=== PATIENT | female | born 1970 | race Caucasian/White ===

== ENCOUNTER → 2022-05-22 | Outpatient (CLI) | payer SELFPAY ==
[2022-05-22 10:19] LABS: Erythrocyte Sedimentation Rate 8 mm/hr (0-30)
[2022-05-22 10:49] LABS: Vitamin B12 1004 pg/mL (211-911); Vitamin D,25 Hydroxy 19.3 ng/mL
[2022-05-22 10:53] LABS: CRP < 2.90 mg/L (0.0-3.0); Free T3 2.2 pg/mL (2.18-3.98); LDH 155 U/L (84-246); T4 Free Direct 0.99 ng/dL (0.76-1.46); Thyroid Stim Hormone (TSH) 1.26 uIU/mL (0.358-3.74)
[2022-05-25 14:08] LABS: Anti-Centromere B Ab <0.2 AI (0.0-0.9); Anti-Chromatin <0.2 AI (0.0-0.9); Anti-Jo <0.2 AI (0.0-0.9); Anti-Scleroderma-70 AB <0.2 AI (0.0-0.9); RNP Ab 0.2 AI (0.0-0.9); SJOGREN'S Anti-SS-A test < 0.2 AI (0.0-0.9); SJOGREN'S Anti-SS-B test < 0.2 AI (0.0-0.9); Smith Ab <0.2 AI (0.0-0.9)
[2022-05-25 15:02] LABS: Anti-dsDNA Ab 2 IU/mL (0-9); Vitamin D 1,25-Dihydroxy 43.2 pg/mL (24.8-81.5)
[2022-05-25 15:08] LABS: Endomysial Antibody IgA Negative (Negative)
[2022-05-25 15:57] LABS: Immunoglobulin A 240 mg/dL (87-352); t-Transglutaminase IgA <2 U/mL (0-3)
[2022-05-30 04:07] LABS: Cytoplasmic Ab (C-ANCA) <1:20 titer (Neg:<1:20); Immunoglobulin A 249 mg/dL (87-352); Immunoglobulin E 4 IU/mL (6-495); Immunoglobulin G 1110 mg/dL (586-1602)
[2022-05-30 07:38] LABS: Immunoglobulin M 163 mg/dL (26-217); Perinuclear Ab (P-ANCA) <1:20 titer (Neg:<1:20)
== END | disposition home or self-care (01) ==
PROVIDERS: PCP Nurse Practitioner Family; Referring Provider Internal Medicine Gastroenterology; Visit Provider Internal Medicine Gastroenterology
DX: K55.1 Chronic vascular disorders of intestine (principal)
CPT/HCPCS: 36415; 82306; 82607; 82652; 82784; 82785; 83516; 83615; 84439; 84443; 84481; 85652; 86140; 86225; 86235; 86255; 86256

== ENCOUNTER 2022-06-08 07:07 | Day surgery (SDC) | payer SELFPAY ==
[2022-06-08] VITALS (7 sets, daily range): BP systolic 99–120; BP diastolic 59–77; PULSE 72–88; RESP 18; TEMP 36.3–37.1; O2SAT 99–100; BMI 17.6
[2022-06-08] MEDS: Lactated Ringers 1,000 ML 15 ML IV (07:15)
[2022-06-08 07:35] LABS: Internal QC Validated? YES +Cl - CLEAR BKGD; Pregnancy, Urine Negative Negative
--- NOTE | 2022-06-08 08:03 | PCM.HP.BLA ---
History and Physical Date of Admission: 06/08/22 11 F who presents to the office today for Initial consult. Teetee established with this clinic 05.20.22 with referral from PCP for suspected SMA syndrome. For several years she was having difficulty with decreased appetite and postprandial nausea and mid/right abdominal pain. CT abd/pel performed 02.20.22 with possible SMA noted. BM most days without difficulty. Symptoms continues to be present at about the same. Current weight 101lbs, typically weighs approximately 115lbs. Typically avoids food that require chewing as they seem to contribute to an increase of symptoms. However, she does do well with soft foods and liquids. Urology seen because she has just one kidney who feels she is doing well. Vascular seen who diagnosed with SMA who is recommending EGD. Additional plans include feeding tube and surgery. Her family would like her to pursue TPN. CT abd/pel 02.20.22 PH noting reduced aortic-SMA angle without appreciable stenosis of left renal vein, compression ratio 1. ROS Const Constitutional: No anorexia, fatigue, fever(s), weight change or sleep problems Eyes Eyes: No change in vision ENT ENT: No abnormal hearing, difficulty swallowing, mouth lesions, tongue swelling or throat swelling Resp Respiratory: No cough or shortness of breath Cardio Cardiology: No chest pain at rest, chest pain with exertion, shortness of breath or dyspnea on exertion Gastro GI: No difficulty swallowing Genitourinary-Female: No difficulty urinating or burning urination Musc Musculoskeletal: No joint pain, joint swelling, muscle weakness or decreased muscle mass Skin Skin: No hair loss in leg, yellowing of the eye, itchy eyes, rash, skin ulcer or skin swelling Neuro Neurology: No abnormal hearing, abnormal movements, confusion, unsteady gait/balance or memory loss Psych Psychiatric: No anxiety, No confusion and No memory loss Endo Endocrine: No fatigue or weight change Aller/Imm Allergy/Immunologic: No itchy eyes, throat swelling or tongue swelling Azam/Lymp Hematologic/Lymphatic: No easy bleeding, easy bruising or enlarged lymph nodes Exam Const General: cooperative and comfortable Nutritional Appearance: average body habitus and well nourished [facility] Head: normal to inspection Ears: hearing grossly normal bilaterally Nose: external nose normal Face and sinus: normal facial exam Mouth: oral mucosae normal Throat: posterior oropharynx normal Eyes General: appearance normal, both eyes and all related structures Neck Neck: normal visual inspection Chest Chest palpation & inspection: normal inspection of the chest and normal palpation of entire chest wall Resp Effort & Inspection: normal respiratory effort Auscultation: Bilateral: Clear to Auscultation Cardio Palpation: normal PMI Rate: regular rate Rhythm: regular rhythm GI Inspection: normal to inspection Auscultation: normal bowel sounds Percussion: normal to percussion Palpation: no hepatosplenomegaly Skin General: no rashes or lesions noted Neuro General: patient alert Extrem General: normal to inspection Psych Affect: normal affect Quality Reporting Tobacco Screening ([facility] 138) Smoking Status: Never smoker Assessment and Plan Assessment and Plan (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 Patient at this time does not want to undergo any surgical intervention including feeding tube placement.? She does have a BMI of 16.5 at this time.? She is 5 5 and weighs 101 pounds.? By calculation she needs to be 130 pounds to have a BMI of 23.? Had a BMI of 21 that would put her at 120 pounds at her current height.? Recommend an upper endoscopy to evaluate her upper GI tract and to see how compressed the duodenum is secondary to compression of the superior mesenteric artery.? She will also undergo biochemical testing for autoimmune disease and diseases of the small bowel.? She may need repeat imaging.? We will refer her to brazing furnace feeder to help ensure a increased caloric intake to have her have the best outcome. ? ? ? Orders: Orders CRP Today K55.1 - Chronic vascular disorders of intestine ? LDH Today K55.1 - Chronic vascular disorders of intestine ? Erythrocyte Sed Rate Today K55.1 - Chronic vascular disorders of intestine ? ANCA Today K55.1 - Chronic vascular disorders of intestine ? Celiac Disease Profile Today K55.1 - Chronic vascular disorders of intestine ? Immunoglobulin A Today K55.1 - Chronic vascular disorders of intestine ? Immunoglobulin E Today K55.1 - Chronic vascular disorders of intestine ? Immunoglobulin G Today K55.1 - Chronic vascular disorders of intestine ? Immunoglobulin M Today K55.1 - Chronic vascular disorders of intestine ? Vitamin D,25 Hydroxy Today K55.1 - Chronic vascular disorders of intestine ? Vitamin B12 Today K55.1 - Chronic vascular disorders of intestine ? Free T3 Today K55.1 - Chronic vascular disorders of intestine ? T4 Free Direct Today K55.1 - Chronic vascular disorders of intestine ? Thyroid Stim Hormone (TSH) Today K55.1 - Chronic vascular disorders of intestine ? DIANE Comprehensive Panel Today K55.1 - Chronic vascular disorders of intestine ? Vitamin D 1,25-Dihydroxy Today K55.1 - Chronic vascular disorders of intestine ? Referrals Nutrition Referral ? K55.1 - Chronic vascular disorders of intestine ? I have examined the patient and the H&P has been reviewed. There are no clinical changes since date of exam.
--- NOTE | 2022-06-08 08:15 | IMM_PTH ---
PATIENT: SABA GIBBONS LOC: EN U#:[id number] AGE/SX: 51/F ROOM: RE06/08/[address]: Dr. Santosh Streeter DO : 1970 BED: DIS: 06/08/2022 SPEC #: [id number] RECD: 06/08/22 13:31 STATUS: SANCHEZ REMitul #: [id number] SHIV: 06/08/22 08:[address]: Santosh Streeter DEPT: IMMUNOHISTOCHEMISTRY RECD BY: Leticia Bates ENTERED: 06/08/22 13:32 SP TYPE: IMMUNO OTHR DR: Emili Lozano, DRYING OVEN TENDER-C Tissues: C - Stomach, NOS Procedures: H Pylori (initial) PHYSICIAN & INSTITUTION [place] [address] SPECIMEN INFORMATION: Tissue Source: C ? Gastric ulcer incisor region Clinical Info: Superior mesenteric artery syndrome Specimen Number: [id number] CPT code: 84532 METHODOLOGY: Deparaffinized sections of prefer/formalin-fixed tissue or PAP/DQ stained slides are incubated with monoclonal/polyclonal antibodies/oligonucleotide probes. Localization is made via biotin free immunoperoxidase method. Appropriate controls are performed and reacted as expected. Results on target cell population are indicated in the following table: RESULTS: ANTIBODY / CLONE RESULT Block C H Pylori (polyclonal) positive These tests were developed and their performance characteristics determined by [facility]. They may not have been cleared or approved by the U.S. Food and Drug Administration. The FDA has determined that such clearance or approval is not necessary. The above immunohistochemical/dualISH markers are ordered and reviewed by the Pathologist. INTERPRETATION: C. Gastric ulcer incisor region: Positive for numerous Helicobacter pylori organisms. ANDERSON:markus 06/09/2022
--- NOTE | 2022-06-08 08:15 | EGD_PTH ---
PATIENT: SABA GIBBONS LOC: EN U#:[id number] AGE/SX: 51/F ROOM: RE06/08/[address]: Dr. Santosh Streeter DO : 1970 BED: DIS: 06/08/2022 SPEC #: [id number] RECD: 06/08/22 11:29 STATUS: SANCHEZ RAJENDRA #: [id number] SHIV: 06/08/22 08:[address]: Santosh Streeter DEPT: SURGICAL PATHOLOGY RECD BY: Winifred Rg ENTERED: 06/08/22 12:27 SP TYPE: EGD BIOPSY BALJINDER DR: Emili Lozano, CORN GROWER-C Tissues: A - Gastric mucous membrane B - Gastric mucous membrane C - Gastric mucous membrane Procedures: Surgery Specimen Level IV HEADER OPERATION: EGD with biopsy (MAC) PRE-OP DIAGNOSIS: Superior mesenteric artery syndrome TISSUE SUBMITTED: A ? Gastric cardia, B ? Greater curvature, C ? Gastric ulcer incisor region MICROSCOPIC DIAGNOSIS A. Gastric cardia, biopsy: Moderate chronic active gastritis. B. Greater curvature, biopsy: Moderate chronic active gastritis. C. Gastric ulcer incisor region, biopsy: Focal ulceration and associated acute inflammation and moderate chronic active gastritis. See comment. SJ:rg 06/09/2022 COMMENT C. The results of immunohistochemistry for Helicobacter pylori will be reported separately ([id number]). MICROSCOPIC DESCRIPTION Slides are reviewed. GROSS DESCRIPTION A - Received in fixative is one container labeled with the patient's name and designated gastric cardia. The specimen consists of multiple irregular fragments of light mittla soft tissue that in aggregate measure 1.2 x 0.3 x 0.1 cm. The specimen is totally submitted in one cassette. B - Received in fixative is one container labeled with the patient's name and designated greater curvature. The specimen consists of two irregular fragments of light mittal soft tissue that in aggregate measure 0.5 x 0.2 x 0.1 cm. The specimen is totally submitted in one cassette. C - Received in fixative is one container labeled with the patient's name and designated gastric ulcer incisor region. The specimen consists of multiple irregular fragments of light mittal soft tissue that in aggregate measure 1 x 0.5 x 0.1 cm. The specimen is totally submitted in one cassette. / ANDERSON:markus 06/08/2022 TC:2 CPT: 89333 x3
--- NOTE | 2022-06-08 08:31 | OP.EGD_ITS ---
Patient Name: Teetee Mack Procedure Date: 06/08/2022 8:04 AM Date of : 1970 Age: 51 Procedure: Upper GI endoscopy Indications: Failure to respond to medical treatment Providers: Santosh Streeter DO Medicines: Propofol per Anesthesia Patient Profile: This is a 51 year old female. Refer to note in patient chart for documentation of history and physical. Patient has symptoms of acute epigastric abdominal pain and acute dyspepsia. Complications: No immediate complications. Procedure: Pre-Anesthesia Assessment: - Prior to the procedure, a History and Physical was performed, and patient medications and allergies were reviewed. The patient is competent. The risks and benefits of the procedure and the sedation options and risks were discussed with the patient. All questions were answered and informed consent was obtained. Patient identification and proposed procedure were verified by the physician in the pre-procedure area. Mental Status Examination: alert and oriented. Airway Examination: normal oropharyngeal airway and neck mobility. Respiratory Examination: clear to auscultation. CV Examination: normal. Prophylactic Antibiotics: The patient does not require prophylactic antibiotics. Prior Anticoagulants: The patient has taken no previous anticoagulant or antiplatelet agents. ASA Grade Assessment: II - A patient with mild systemic disease. After reviewing the risks and benefits, the patient was deemed in satisfactory condition to undergo the procedure. The anesthesia plan was to use monitored anesthesia care (MAC). Immediately prior to administration of medications, the patient was re-assessed for adequacy to receive sedatives. The heart rate, respiratory rate, oxygen saturations, blood pressure, adequacy of pulmonary ventilation, and response to care were monitored throughout the procedure. The physical status of the patient was re-assessed after the procedure. After obtaining informed consent, the endoscope was passed under direct vision. Throughout the procedure, the patient's blood pressure, pulse, and oxygen saturations were monitored continuously. The gastroscope was introduced through the mouth, and advanced to the second part of duodenum. The upper GI endoscopy was accomplished without difficulty. The patient tolerated the procedure well. Scope In: 8:13:57 AM Scope Out: 8:21:36 AM Total Procedure Duration Time 0 hours 7 minutes 39 seconds Findings: No gross lesions were noted in the entire esophagus. A small hiatal hernia was present. Scattered moderate inflammation characterized by congestion (edema), erythema and friability was found in the cardia and on the greater curvature of the stomach. Biopsies were taken with a cold forceps for histology. Verification of patient identification for the specimen was done. Estimated blood loss was minimal. One non-bleeding cratered gastric ulcer was found at the incisura. The lesion was 13 mm in largest dimension. Biopsies were taken with a cold forceps for histology. Verification of patient identification for the specimen was done. Estimated blood loss was minimal. No gross lesions were noted in the first portion of the duodenum. Impression: - No gross lesions in esophagus. - Small hiatal hernia. - Gastritis. Biopsied. - Non-bleeding gastric ulcer. Biopsied. - No gross lesions in the first portion of the duodenum. Recommendation: - Discharge patient to home. - No aspirin, ibuprofen, naproxen, or other non-steroidal anti-inflammatory drugs for 12 weeks. - Use Protonix (pantoprazole) 40 mg PO BID for 8 weeks. - Use sucralfate tablets 1 gram PO QID for 2 months. Procedure Code(s): --- Professional --- 53020, Esophagogastroduodenoscopy, flexible, transoral; with biopsy, single or multiple CPT copyright 2017 [employer]. All rights reserved. The codes documented in this report are preliminary and upon food and beverage checker review may be revised to meet current compliance requirements. Santosh Streeter DO 06/08/2022 8:31:07 AM This report has been signed electronically. Number of Addenda: 0 Note Initiated On: 06/08/2022 8:04 AM
--- NOTE | 2022-06-08 08:31 | OP.CCLET_ITS ---
06/08/2022 Luis Sky Re : Upper GI endoscopy procedure for Teetee Mack Dear Blake This procedure was performed on Wednesday, June 08, 2022. My impressions and recommendations are as follows: Impressions : - No gross lesions in esophagus. - Small hiatal hernia. - Gastritis. Biopsied. - Non-bleeding gastric ulcer. Biopsied. - No gross lesions in the first portion of the duodenum. Recommendations : - Discharge patient to home. - No aspirin, ibuprofen, naproxen, or other non-steroidal anti-inflammatory drugs for 12 weeks. - Use Protonix (pantoprazole) 40 mg PO BID for 8 weeks. - Use sucralfate tablets 1 gram PO QID for 2 months. My findings are described in the full procedure note, which is enclosed. If I can be of further assistance, please feel free to contact me at . Sincerely, Santosh Streeter, 06/08/2022 8:31:07 AM This report has been signed electronically.
== END 2022-06-08 09:19 | disposition home or self-care (01) ==
LOC: EN 07:13 → AC 07:16
PROVIDERS: Anesthesiology; PCP Nurse Practitioner Family; Referring Provider Nurse Practitioner Family; Visit Provider Internal Medicine Gastroenterology
PROC: 0DJ08ZZ Inspection of Upper Intestinal Tract, Via Natural or Artificial Opening Endoscopic (ICD-10-PCS; CPT 43235; principal; 2022-06-08 08:10)
DX: K25.9 Gastric ulcer, unspecified as acute or chronic, without hemorrhage or perforation (principal); K29.50 Unspecified chronic gastritis without bleeding; K44.9 Diaphragmatic hernia without obstruction or gangrene; B96.81 Helicobacter pylori [H. pylori] as the cause of diseases classified elsewhere; Z90.5 Acquired absence of kidney
CPT/HCPCS: 43239; 81025; 88305; 88342; J7120; J2405

== ENCOUNTER → 2022-08-24 | Outpatient (CLI) | payer SELFPAY ==
[2022-08-28 18:53] LABS: H. PYLORI STOOL AG Negative (Negative)
== END | disposition home or self-care (01) ==
PROVIDERS: PCP Nurse Practitioner Family; Referring Provider Internal Medicine Gastroenterology; Visit Provider Internal Medicine Gastroenterology
DX: A04.8 Other specified bacterial intestinal infections (principal); K55.1 Chronic vascular disorders of intestine
CPT/HCPCS: 87338

== ENCOUNTER → 2023-03-19 | Outpatient (CLI) | payer SELFPAY ==
[2023-03-21 08:08] LABS: H. PYLORI STOOL AG Negative (Negative)
== END | disposition home or self-care (01) ==
LOC: LABSPEC 08:59
PROVIDERS: PCP Nurse Practitioner Family; Referring Provider Internal Medicine Gastroenterology; Visit Provider Internal Medicine Gastroenterology
DX: R10.9 Unspecified abdominal pain (principal)
CPT/HCPCS: 87338

== ENCOUNTER → 2025-05-23 | Outpatient (CLI) | payer SELFPAY ==
--- OUTSIDE RECORDS SUMMARY | 2025-05-23 15:21 | XMS RPT_ITS | CCD ---
Author Organization [facility] Care Team Providers Care Payroll Professional Name Role Phone Friend, Dr. Frost Attending Provider Friend, Dr. Frost Other Provider Blake AUTOMATIC PACKER OPERATOR, AUTOMATIC PACKER OPERATOR-C Emili Primary Care Provider [phone] Blake AUTOMATIC PACKER OPERATOR, AUTOMATIC PACKER OPERATOR-C Emili Referring Provider [phone] Blake AUTOMATIC PACKER OPERATOR, Emili Primary Care Unavailable FriendSantosh Attending Unavailable Blake AUTOMATIC PACKER OPERATOR, Emili Referring Unavailable FriendSantosh Attending Unavailable Blake AUTOMATIC PACKER OPERATOR, Emili Referring Unavailable Blake AUTOMATIC PACKER OPERATOR, Emili Primary Care Unavailable UNGERERVICKMERCEDES AUTOMATIC PACKER OPERATOR Consulting Unavailable UNGERERMERCEDES AUTOMATIC PACKER OPERATOR Attending Unavailable UNGERERMERCEDES AUTOMATIC PACKER OPERATOR Admitting Unavailable UNGERER, MERCEDES AUTOMATIC PACKER OPERATOR Primary Care Unavailable PROVIDER, UNKNOWN Consulting Unavailable UNGERER, MERCEDES AUTOMATIC PACKER OPERATOR Primary Care Unavailable UNGERER, MERCEDES AUTOMATIC PACKER OPERATOR Consulting Unavailable UNGERER, MERCEDES AUTOMATIC PACKER OPERATOR Attending Unavailable UNGERER, MERCEDES AUTOMATIC PACKER OPERATOR Admitting Unavailable PROVIDER, UNKNOWN Consulting Unavailable Medications Current Medications Medication Drug Class(es) Dates Sig (Normalized) Sig (Original) amoxicillin 500 mg oral tablet (2 sources) Penicillin-class Antibacterial Start: 06-09-2022 take 500 mg by mouth every twelve hours Amoxicillin Active 500 MG PO Q12H June 09, 2022 1:00am clarithromycin 500 mg oral tablet (2 sources) Macrolide Antimicrobial Start: 06-09-2022 take 500 mg by mouth every twelve hours Clarithromycin Active 500 MG PO Q12H June 09, 2022 1:00am pantoprazole 40 mg delayed release oral tablet (3 sources) Proton Pump Inhibitor Start: 06-08-2022 take 40 mg by mouth once daily Pantoprazole Active 40 MG PO DAILY 60 60 June 08, 2022 1:00am saccharomyces boulardii 250 mg oral capsule (1 source) Start: 03-13-2022 take 1 capsule by mouth twice daily Saccharomyces Boulardii (Daily Probiotic (S. Boulardii)) 250 mg capsule Active 250 MG PO TWICE A DAY March 12, 2022 11:00pm Completed/Discontinued Medications Medication Drug Class(es) Dates Sig (Normalized) Sig (Original) bismuth subsalicylate 262 mg oral tablet (2 sources) Bismuth Start: 06-09-2022 End: 06-23-2022 take 1 tablet by mouth every twenty-four hours Bismuth Subsalicylate (Bismuth) 262 mg tablet,chewable Discontinued 2 TABLET PO EVERY 6 HOURS 112 14 June 09, 2022 1:00am June 23, 2022 1:03am do not exceed 16 tabs per 24 hrs sucralfate 1000 mg oral tablet (3 sources) Aluminum Complex Start: 06-08-2022 End: 08-07-2022 take 1 g by mouth every six hours Sucralfate Discontinued 1 GM PO EVERY 6 HOURS 240 60 June 08, 2022 1:00am August 07, 2022 1:04am Problems Active Problems Problem Classification Problem Date Documented Da te Episodic/Chronic Abdominal pain (1 source) Abdominal pain; Translations: [Unspecified abdominal pain] 02-12-2023 Episodic Intestinal infection (3 sources) Infection caused by Helicobacter pylori; Translations: [Other specified bacterial intestinal infections] 08-14-2022 Episodic Peripheral and visceral atherosclerosis (8 sources) Superior mesenteric artery syndrome; 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] Chronic Residual codes; unclassified (1 source) Acquired absence of kidney; Translations: [Acquired absence of kidney] Onset: 09-27-2024 Episodic Past or Other Problems Problem Classification Problem Date Documented Da te Episodic/Chronic Heart valve disorders (3 sources) Cardiac murmur, unspecified; Translations: [Cardiac murmur, unspecified] Onset: 10-04-2023 Episodic Results Test Name Value Interpretation Reference Range Facility Gastroenterology Visit Repor ton 05-25-2024 Gastroenterology Visit Report [facility] [address] [place] [address] OFFICE VISIT Date of Service: 05/25/24 MR#: [id number] Acct: [id number] Name: SABA GIBBONS Rep #: [id number] : 1970 Provider: Santosh Streeter DO Age/Sex: 53/F [place] [facility] [place] Status: Signed Intake Vital Signs 06/08/22 07:37 Height 5 ft 5 in Intake Visit Reasons: 1 Y FU Allergies No Known Allergies Allergy (Verified 06/08/22 07:36) Medications ???Medication ???Instructions ???Recorded ???Confirmed ???Type pantoprazole 40 mg tablet,delayed 40 mg PO DAILY 3 months #90 tabs 05/28/23 05/25/24 Rx release PFSH Medical History (Updated 02/12/23 @ 15:21 by Betsy Trujillo) Wears contact lenses Wears dentures Non-smoker Decreased appetite Nausea Abdominal pain Surgical History H/O dilation and curettage History of nephrectomy, right Family History Father Asthma Hypertension Grandfather Asthma Grandmother Diabetes Sister Kidney disease Hypertension Social History Smoking Status: Never smoker alcohol intake: never HPI HPI Details: SABA GIBBONS, is a 53 F who presents to the office today for follow up. Prior workup: ? CT abd/pel 02.20.22 PH noting reduced aortic-SMA angle without appreciable stenosis of left renal vein, compression ratio 1. 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 For several years she was having difficulty with decreased appetite and postprandial nausea and mid/right abdominal pain. CT abd/pel performed 02.20.22 with possible SMA noted. BM most days without difficulty. Symptoms continues to be present at about the same. Current weight 101lbs, typically weighs approximately 115lbs. Typically avoids food that require chewing as they seem to contribute to an increase of symptoms. However, she does do well with soft foods and liquids. Urology seen because she has just one kidney who feels she is doing well. Vascular seen who diagnosed with SMA who is recommending EGD. Additional plans include feeding tube and surgery. Her family would like her to pursue TPN. ? Biochemical CRP, LDH, ESR, ANCA, celiac, IgGAM, Vit D25, T3, T4, TSH, DIANE comp, Vit D1,25 without pertinent abnormality. Vit B12 H1004, IgE L4 EGD 06.08.22 noting small hiatal hernia; gastritis; non-bleeding gastric ulcer, gastritis. H.Pylori + Protonix 40mg taper and sucralfate Contact 06.09.22 H.Pylori treatment started flagyl, bismuth, clarithromycin and flagyl. Referred to nutrition services who were unable to reach Saba to schedule. OV 08.14.22 who feels she is doing better overall and has been introducing new foods. SMA, daily calorie goal 1500 with BMI 22. H.Pylori infection, check stool ? Stool H.Pylori negative. Contact 02.12.23 reporting she is not feeling well, similar to H.Pylori previously. ? Stool 03.19.23 H.Pylori negative. Contact 04.01.23 she feels her GI upset may be r/t stress from moving; not taking PPI regularly. Start PPI regularly and simethicone BID OV 05.28.23 intermittently will have indigestion which makes her worried. Continues with PPI QD and will have missed days (on missed days she feels worse) and simethicone PRN. OV 05.25.24 pt reports that she is feeling well overall and denies GI symptoms of concern at this time. Pt reports that she continues with her Pantoprazole when she is symptomatic and it is effective. ROS Const Constitutional: No fatigue, fever(s) or weight change ENT ENT: No difficulty swallowing Gastro GI: Positive for bloating, heartburn and excessive flatus; No abdominal pain, belching, change in bowel habits, change in stool character, coffee ground emesis, constipation, cramping, diarrhea, difficulty swallowing, feeling full early, incontinent of stools, Vomiting blood/hematemesis, Blood in stool, loose stools, Black,tarry stools, nausea/dyspepsia, pain with swallowing, vomiting or other Musc Musculoskeletal: Positive for back pain; No joint pain Skin Skin: No yellowing of the eye or itchy eyes Psych Psychiatric: No anxiety and No depression Endo Endocrine: No fatigue or weight change Aller/Imm Allergy/Immunologic: No itchy eyes Azam/Lymp Hematologic/Lymphatic : No easy bleeding or easy bruising Exam Const General: cooperative and comfortable Nutritional Appearance: average body habitus and well nourished HENVT Head: normal to inspection Ears: hearing grossly normal bilaterally Nose: external nose emily (more content not included)... Normal [facility] CV ECHO [facility] CV ECHO COMPLETE [place] [address] Patient: SABA GIBBONS Phone#: : 1970 Age: 52 Gender: F Pt. Type: Out Account: [id number] Location: Ordering: MERCEDES LOCKWOOD Exam Date: 10/04/2023/9:21 Family Phys: Charge Code: [id number] Physician: [place] Order #: [id number] Dose#: PROCEDURE: ECHOCARDIOGRAM WITH DOPPLER AND COLOR FLOW HISTORY: rt nephrectomy INDICATIONS: HEART MURMUR COMPARISON: None. TECHNIQUE: A 2-D ultrasound, color spectral Doppler and M-mode evaluation of the heart and great vessels. PATIENT MEASUREMENTS: Height (in.): 65 BSA: 1.60 Weight (lbs.): 122 BP: 150/76 Hosiery Bagger: CHINTAN M MODE 2D MEASUREMENTS AND CALCULATIONS: LVIDd: 4.26 cm LVIDs: 2.59 cm IVSd: 0.75 cm LVPWd: 0.83 cm LVOT diam: 1.9 cm FS: 39.24 % Ao Root diam: 2.58 cm LA diam: 3.3 cm LA Volume Index: 16.2 mL/m2 LA A4 Area: 11.18 cm2 RA A4 Area: 10.8 cm2 RVDd: 2.61 cm TAPSE: 25 mm DOPPLER MEASUREMENTS AND CALCULATIONS MITRAL MV E MAX prudencio: 0.98 m/s MV A MAX prudencio: 0.59 m/s MV E-A ratio: 1.65 Lat Peak E' Prudencio 14 cm/sec Septal Peak E' PRUDENCIO 14 cm/sec E/E' lateral 6.75 E/E' medial 7 Continued Report - Page 2 of 3 Patient: SABA GIBBONS Phone#: : 1970 Age: 52 Gender: F Pt. Type: Out Account: [id number] Location: Ordering: MERCEDES LOCKWOOD Exam Date: 10/04/2023/9:21 Family Phys: Charge Code: [id number] Physician: [place] Order #: [id number] Dose#: AORTIC Ao V2 max: 1.15 m/s Ao max P.29 mm[Hg] LV V1 Max 0.97 m/s LV V1 Max PG 3.74 mm[Hg] PULMONIC PA V2 Max 1.09 m/s PA Max PG 4.72 mm[Hg] TRICUSPID TR Max Prudencio TR max PG RVSP 2D/M-MODE AND COLOR FLOW LEFT VENTRICLE: Left ventricle is normal in size and thickness. Systolic ejection fraction is 55-60%. There are no regional wall motion abnormality seen. Diastolic function is normal WALL MOTION: 1 - Basal anterior: Normal. 7 - Mid anterior: Normal. 13 - Apical anterior: Normal. 2 - Basal anteroseptal: Normal. 8 - Mid anteroseptal: Normal. 14 - Apical septal: Normal. 3 - Basal inferoseptal: Normal. 9 - Mid inferoseptal: Normal. 15 - Apical inferior: Normal. 4 - Basal inferior: Normal. 10-Mid inferior: Normal. 16 - Apical lateral: Normal. 5 - Basal inferolateral: Normal. 11-Mid inferolateral: Normal. 6 - Basal anterolateral: Normal. 12-Mid anterolateral: Normal. RIGHT VENTRICLE: Right ventricle is normal in size and systolic function LEFT ATRIUM: Left atrium is normal size RIGHT ATRIUM: Right atrium is normal size. ATRIAL SEPTUM: There is no large interatrial shunt seen. PFO was not assessed. MITRAL VALVE: Mitral valve appears normal structure. There is trivial regurgitation and no stenosis seen. TRICUSPID VALVE: Tricuspid valve appears normal structure. There is no regurgitation or stenosis seen AORTIC VALVE: Aortic valve is inadequately visualized. There is no regurgitation or stenosis seen PULMONIC VALVE: Pulmonic valve is inadequately visualized. Doppler shows no regurgitation or stenosis seen AORTIC ROOT: Aortic root is normal size. AORTIC ARCH: Inadequately visualized DESC THORACIC AORTA: Inadequately visualized IVC/SVC: IVC is dilated with more than 50% collapse of inspiration. Estimated right atrial pressure is 8 mm Hg PULMONARY VEINS: Normal pulmonic vein flow. PERICARDIUM: There is no pericardial effusion seen. CONCLUSION: Continued Report - Page 3 of 3 Patient: SABA GIBBONS. Phone#: : 1970 Age: 52 Gender: F Pt. Type: Out Account: [id number] Location: Ordering: MERCEDES LOCKWOOD Exam Date: 10/04/2023/9:21 Family Phys: Charge Code: [id number] Physician: [place] Order #: [id number] Dose#: 1. Left ventricle is normal in size and thickness. Systolic ejection fraction is 55-60% with normal wall motion 2. There are no significant valvular dysfunction seen. 3. Right ventricle is normal size systolic function 4. TR velocity is inadequate to calculate for right ventricular systolic pressure Dictated by: RICARDO MORGAN MD on 10/04/2023 at 12:10 Approved by: RICARDO MORGAN MD on 10/04/2023 at 12:21 Normal [facility] Gastroenterology Visit Repor ton 05-28-2023 Gastroenterology Visit Report [facility] Gastroenterology [address] [place] [address] OFFICE VISIT Date of Service: 05/28/23 MR#: [id number] Acct: [id number] Name: SABA GIBBONS Rep #: [id number] : 1970 Provider: Santosh Streeter DO Age/Sex: 52/F [place] [facility] [place]: Signed Intake Vital Signs 06/08/22 07:37 Height 5 ft 5 in Intake Visit Reasons: 5 MO FU Allergies No Known Allergies Allergy (Verified 06/08/22 07:36) PFSH Medical History (Updated 02/12/23 @ 15:21 by Betsy Trujillo) Abdominal pain Decreased appetite Nausea Non-smoker Wears contact lenses Wears dentures Surgical History H/O dilation and curettage History of nephrectomy, right Family History Father Asthma Hypertension Grandfather Asthma Grandmother Diabetes Sister Kidney disease Hypertension Social History Smoking Status: Never smoker alcohol intake: never HPI HPI Details: SABA GIBBONS, is a 52 F who presents to the office today for Prior workup: ? CT abd/pel 02.20.22 PH noting reduced aortic-SMA angle without appreciable stenosis of left renal vein, compression ratio 1. 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 For several years she was having difficulty with decreased appetite and postprandial nausea and mid/right abdominal pain. CT abd/pel performed 02.20.22 with possible SMA noted. BM most days without difficulty. Symptoms continues to be present at about the same. Current weight 101lbs, typically weighs approximately 115lbs. Typically avoids food that require chewing as they seem to contribute to an increase of symptoms. However, she does do well with soft foods and liquids. Urology seen because she has just one kidney who feels she is doing well. Vascular seen who diagnosed with SMA who is recommending EGD. Additional plans include feeding tube and surgery. Her family would like her to pursue TPN. ? Biochemical CRP, LDH, ESR, ANCA, celiac, IgGAM, Vit D25, T3, T4, TSH, DIANE comp, Vit D1,25 without pertinent abnormality. Vit B12 H1004, IgE L4 EGD 06.08.22 noting small hiatal hernia; gastritis; non-bleeding gastric ulcer, gastritis. H.Pylori + Protonix 40mg taper and sucralfate Contact 06.09.22 H.Pylori treatment started flagyl, bismuth, clarithromycin and flagyl. Referred to nutrition services who were unable to reach Saba to schedule. OV 08.14.22 who feels she is doing better overall and has been introducing new foods. SMA, daily calorie goal 1500 with BMI 22. H.Pylori infection, check stool ? Stool H.Pylori negative. Contact 02.12.23 reporting she is not feeling well, similar to H.Pylori previously. ? Stool 03.19.23 H.Pylori negative. Contact 04.01.23 she feels her GI upset may be r/t stress from moving; not taking PPI regularly. Start PPI regularly and simethicone BID OV 05.28.23 intermittently will have indigestion which makes her worried. Continues with PPI QD and will have missed days (on missed days she feels worse) and simethicone PRN. ROS Const Constitutional: No anorexia, fatigue, fever(s), weight change or sleep problems Eyes Eyes: No change in vision ENT ENT: No abnormal hearing, difficulty swallowing, mouth lesions, tongue swelling or throat swelling Resp Respiratory: No cough or shortness of breath Cardio Cardiology: No chest pain at rest, chest pain with exertion, shortness of breath or dyspnea on exertion Gastro GI: No difficulty swallowing Genitourinary-Female: No difficulty urinating or burning urination Musc Musculoskeletal: No joint pain, joint swelling, muscle weakness or decreased muscle mass Skin Skin: No hair loss in leg, yellowing of the eye, itchy eyes, rash, skin ulcer or skin swelling Neuro Neurology: No abnormal hearing, abnormal movements, confusion, unsteady gait/balance or memory loss Psych Psychiatric: No anxiety, No confusion and No memory loss Endo Endocrine: No fatigue or weight change Aller/Imm Allergy/Immunologic: No itchy eyes, throat swelling or tongue swelling Azam/Lymp Hematologic/Lymphatic : No easy bleeding, easy bruising or enlarged lymph nodes Exam Const General: cooperative and comfortable Nutritional Appearance: average body habitus and well nourished HENMT Head: normal to inspection Ears: hearing grossly normal bilaterally Nose: external nose normal Face and sinus: normal facial exam Mouth: oral mucosae normal Throat: posterior oropharynx normal Eyes General: appearance normal, both e (more content not included)... Normal [facility] Stool Helicobacter pylori an tigen detection by immunoassayOrdered By: Santosh Streeter on 03-19-2023 H. pylori Ag IA Ql (Stl) Negative Negative [facility] Comment on above: Performed at: [facility] [id number] Director: George Sanchez MD, Phone: [phone] Stool Helicobacter pylori an tigen detection by immunoassayOrdered By: Santosh Streeter on 08-24-2022 H. pylori Ag IA Ql (Stl) Negative Negative [facility] Comment on above: Performed at: [facility] [id number] Director: George Sanchez MD, Phone: [phone] Laboratory - Chemistry and C hemistry - challengeOrdered By: Dr. Wolfe on 06-08-2022 HCG ( test) Ql (U) Negative [facility] Comment on above: Very dilute urine sp ecimens, as indicated by a low specificgravity, may not contain apprenticeship training representative levels of hCG. If is still suspected, a first morning urinespecimen should be collected 48 hours later and tested. Atypical perinuclear antineu trophil cytoplasmic antibodies measurementOrdered By: Santosh Streeter on 05-22-2022 Neutrophil cytoplasmic Ab.perinuclear.atypical IF (S) [Titer] <1:20 titer Neg:<1:20 [facility] Comment on above: The atypical pANCA p attern has been observed in asignificant percentage of patients with ulcerative colitis,primary sclerosing cholangitis and autoimmune hepatitis. Basophil percentageOrdered B y: Santosh Streeter on 05-22-2022 Basophil percentage < 0.2 AI 0.0-0.9 [facility] Erythrocyte sedimentation ra teOrdered By: Santosh Streeter on 05-22-2022 ESR (Bld) [Velocity] 8 mm/h 0-30 [facility] Laboratory - Chemistry and C hemistry - challengeOrdered By: Santosh Streeter on 05-22-2022 Cobalamin (Vitamin B12) [Mass/Vol] 1004 pg/mL 211-911 [facility] Free T4 [Mass/Vol] 0.99 ng/dL 0.76-1.46 [facility] No Panel InformationOrdered By: Santosh Streeter on 05-22-2022 Centromere B Antibody <0.2 AI 0.0-0.9 [facility] Endomysial IgA Antibody Negative Negative [facility] Free Triiodothyronine (T3) pg/dL 2.2 pg/mL 2.18-3.98 [facility] Immunoglobulin E 4 IU/mL 6-495 [facility] INSPECTOR BARREL Antibody 0.2 AI 0.0-0.9 [facility] Thyroid Stimulating Hormone (TSH) 1.26 uIU/mL 0.358-3.74 [facility] Vitamin D 25-Hydroxy 19.3 ng/mL [facility] Comment on above: Vitamin D 25(OH) Sta tus Range Deficiency <20 ng/mL (50nmol/L) Insufficiency 20 - 30 ng/mL (50 - 75 nmol/L) Sufficiency 30 - 100 ng/mL (75 - 250 nmol/L) Toxicity >100 ng/mL (>250 nmol/L) Serum DNA double strand anti body assay (units/volume)Ordered By: Santosh Streeter on 05-22-2022 DNA double strand Ab Qn (S) 2 [IU]/mL 0-9 [facility] Comment on above: Negative <5 Equivoca l 5 - 9 Positive >9 Serum IgA measurement (units /volume)on 05-22-2022 IgA Qn (S) 240 mg/dL 87-352 [facility] Work Phone: Comment on above: Performed at: [address] [id number] Director: Marcus Fermin PhD, Phone: [phone] Serum Larissa-1 antibody assay (u nits/volume)Ordered By: Santosh Ferdinand on 05-22-2022 Larissa-1 extractable nuclear Ab Qn (S) <0.2 AI 0.0-0.9 [facility] Serum Scl-70 extractable nuc lear antibody assay (units/volume)Ordered By: Santosh Streeter on 05-22-2022 SCL-70 extractable nuclear Ab Qn (S) <0.2 AI 0.0-0.9 [facility] Serum Edmonds extractable nucl ear antibody detectionOrdered By: Santosh Streeter on 05-22-2022 Edmonds extractable nuclear Ab Ql (S) <0.2 AI 0.0-0.9 [facility] Serum classic neutrophil cyt oplasmic antibody assay (units/volume)Ordered By: Santosh Ferdinand on 05-22-2022 Neutrophil cytoplasmic Ab.classic Qn (S) <1:20 titer Neg:<1:20 [facility] Serum or plasma C reactive p rotein measurement (mass/volume)Ordered By: Santoshdina Streeter on 05-22-2022 CRP [Mass/Vol] mg/L 0.0-3.0 [facility] Comment on above: C-Reactive Protein ( CRP) provides useful information for thediagnosis, therapy and monitoring of inflammatory processesand associated diseases. For the evaluation of Relative Riskfor Cardiovascular Disease, a High Sensitivity CRP (HSCRP)should be ordered. Serum or plasma IgA measurem ent (mass/volume)Ordered By: Santoshshaylee Streeter on 05-22-2022 IgA [Mass/Vol] 249 mg/dL 87-352 [facility] Serum or plasma IgG measurem ent (mass/volume)Ordered By: Santoshshaylee Streeter on 05-22-2022 IgG [Mass/Vol] 1110 mg/dL [phone] [facility] Serum or plasma IgM measurem ent (mass/volume)Ordered By: Santosh [place] on 05-22-2022 IgM [Mass/Vol] 163 mg/dL 26-217 [facility] Comment on above: Performed at: [address] [id number] Director: Marcus Fermin PhD, Phone: [phone] at: [address] [id number] Director: George Sanchez MD, Phone: [phone] Serum or plasma calcitriol m easurement (mass/volume)Ordered By: Santosh Streeter on 05-22-2022 1,25-dihydroxyvitamin D3 [Mass/Vol] 43.2 pg/mL 24.8-81.5 [facility] Comment on above: Performed at: - [address] [id number] Director: Marcus Fermin PhD, Phone: [phone] at: - [facility] [address] [id number] Director: George Sanchez MD, Phone: [phone] Serum perinuclear neutrophil cytoplasmic antibody titer by immunofluorescenceOrdered By: Santosh Streeter on 05-22-2022 Neutrophil cytoplasmic Ab.perinuclear IF (S) [Titer] <1:20 titer Neg:<1:20 [facility] Comment on above: The presence of posi tive fluorescence exhibiting P-ANCA orC-ANCA patterns alone is not specific for the diagnosis ofWegener's Granulomatosis (WG) or microscopic polyangiitis.Decisions about treatment should not be based solely onANCA IFA results. The International ANCA Group Consensusrecommends follow up testing of positive sera with both DE-3 and MPO-ANCA enzyme immunoassays. As many as 5% serumsamples are positive only by EIA. Ref. AM J Clin Liadld7767;111:507-513. Serum tissue transglutaminas e IgA antibody assay (units/volume)Ordered By: Santosh Streeter on 05-22-2022 tTG IgA Qn (S) <2 U/mL 0-3 [facility] Comment on above: Negative 0 - 3 Weak Positive 4 - 10 Positive >10 Tissue Transglutaminase (tTG) has been identified as the endomysial antigen. Studies have demonstr- ated that endomysial IgA antibodies have over 99% specificity for gluten sensitive enteropathy. Thin prep Papanicolaou smear with manual screeningOrdered By: Santosh Streeter on 05-22-2022 Thin prep Papanicolaou smear with manual screening 155 U/L 84-246 [facility] Vital Signs Date Time Vital Sign Value Performing Clinician Faci lity 06-08-2022 08:44-0500 Heart rate 78 /min Dr. Santosh Streeter Work Phone: [facility] 06-08-2022 08:44-0500 Respiratory rate 18 /min Dr. Santosh Streeter Work Phone: [facility] 06-08-2022 08:44-0500 SaO2% (BldA) [Mass fraction] 100 % Dr. Santosh Streeter Work Phone: [facility] 06-08-2022 08:40-0500 Body temperature 97.3 [degF] Dr. Santosh Streeter Work Phone: [phone] [place] [address] 06-08-2022 08:40-0500 Diastolic blood pressure 63 mm[Hg] Dr. Santosh Streeter Work Phone: [facility] 06-08-2022 08:40-0500 Systolic blood pressure 108 mm[Hg] Dr. Santosh Streeter Work Phone: [facility] 06-08-2022 07:37-0500 Body height 165.[address] Santosh Streeter Work Phone: [facility] 06-08-2022 07:37-0500 Body mass index (BMI) [Ratio] 17.6 kg/m2 Dr. Santosh Streeter Work Phone: [facility] 06-08-2022 07:37-0500 Body weight [address] Santosh Streeter Work Phone: [facility] Encounters Encounter Date Encounter Type Care Provider Facility Start: 09-27-2024 ambulatory MERCEDES RUIZ [facility] Start: 05-25-2024 End: 05-25-2024 ambulatory Santosh Streeter [place]: 10-04-2023 End: 10-04-2023 ambulatory MERCEDES RUIZ [facility] Start: 05-28-2023 End: 05-28-2023 ambulatory Emili Blake AUTOMATIC PACKER OPERATOR Facility:[facility] Start: 03-19-2023 End: 03-19-2023 ambulatory [facility] Work Phone: Start: 03-19-2023 End: 03-19-2023 [facility] Start: 08-24-2022 End: 08-24-[address] Santosh Streeter Work Phone: [facility] Work Phone: Start: 08-24-2022 End: 08-24-[address] [facility] Start: 08-14-2022 End: 08-14-[address] Santosh Streeter Work Phone: [facility] Start: 06-08-2022 Non-patient / Non-visit Dr. Santosh Streeter Work Phone: [facility] Start: 06-08-2022 End: 06-08-2022 Admission to same day surgery center Dr. Santosh Streeter Work Phone: [facility] Start: 06-08-2022 End: 06-08-[address] Santosh Streeter Work Phone: [facility] Work Phone: Start: 05-22-2022 End: 05-22-[address] Santosh Streeter Work Phone: [facility] Work Phone: Start: 05-22-2022 End: 05-22-[address] Santosh Streeter Work Phone: [facility] Start: 05-20-2022 End: 05-20-[address] Santosh Streeter Work Phone: [facility] Procedures Date Procedure Procedure Detail Performing Clinician Start: 06-08-[address] Frost Friend Work Phone: Plan of Treatment Date Care Activity Detail Author Start: 06-08-2022 Egd transoral biopsy single/multiple EGD BIOPSY SINGLE/MULTIPLE [facility] Start: 06-08-2022 Patient discharge [facility] Start: 05-22-2022 IgA [Mass/volume] in Serum or Plasma [facility] Work Phone: Start: 05-22-2022 IgE [Units/volume] i n Serum or Plasma [facility] Work Phone: Start: 05-22-2022 IgG [Mass/volume] in Serum or Plasma [facility] Work Phone: Start: 05-22-2022 IgM [Mass/volume] in Serum or Plasma [facility] Work Phone: Start: 05-22-2022 [facility] Work Phone: Start: 05-20-2022 Patient referral [facility] Work Phone: IgA [Mass/volume] in Serum or Plasma [facility] Work Phone: IgE [Units/volume] i n Serum or Plasma [facility] Work Phone: IgG [Mass/volume] in Serum or Plasma [facility] Work Phone: IgM [Mass/volume] in Serum or Plasma [facility] Work Phone: Neutrophil cytoplasm ic Ab.classic [Units/volume] in Serum [facility] Work Phone: P[facility]ANCA measurement [facility] Work Phone: [facility] Work Phone: [facility] Payers Date Payer Category Payer Self-pay 2011 Unknown [facility] [id number] Unknown [facility] P[facility] [id number] Unknown [id number] Unknown [id number] Social History Date Type Detail Facility Start: 05-20-2022 End: 08-14-2022 Tobacco smoking status NHIS Unknown if ever smoked [facility] Start: 1970 Sex Assigned At Female [facility] NEGATED: Highlighted row [facility] Goals Date Patient Goal Desired Activity /State Mental Status Date Assessment Result Facility 06-08-2022 Cognitive function Voice/Name [facility] Work Phone: Evaluation note Note Date & Type Note Facility Evaluation note Diagnosis Onset Date Superior mesenteric artery syndrome chronic [facility] Work Phone: Evaluation note Note Date & Type Note Facility Evaluation note Diagnosis Onset Date Superior mesenteric artery syndrome chronic [place] mesenteric artery syndrome chronic H. pylori infection resolved [facility] Work Phone: Evaluation note Note Date & Type Note Facility Evaluation note No assessment information availa ble [facility] Work Phone: Chief Complaint and Reason for Visit Chief Complaint ABNORMAL CT OF ABD E-ORDER Reason for Visit Superior mesenteric artery syndrome Chief Complaint ABNORMAL CT OF ABD E-ORDER 2 WK FU E ORDER Reason for Visit Superior mesenteric artery syndrome Superior mesenteric artery syndrome H. pylori infection Chief Complaint INT LABSPEC Family History No Family History Records Found Relationship Condition Age at Onset Recorded Date/T qamar father Asthma Unknown Hypertension Unknown grandfather Asthma Unknown grandmother Diabetes mellitus Unknown sister Kidney disorder Unknown Advance Directives No Advanced Directives Records Found Advance Directive Response Recorded Date/ Time Living Will No June 03 8:30am Power of Acid Patroller No June 03, 2022 8:30am Advance Directive Response Recorded Date/ Time Living Will No June 03 9:30am Power of Acid Patroller No June 03, 2022 9:30am Summary Purpose Additional Source Comments Goals (unrecognized section and content) Goals may be documented in a n alternate sectionGoals may be documented in an alternate section Care Teams (unrecognized sec tion and content) Team Status: Active Member Role Status Dates Emili Lozano NP, AUTOMATIC PACKER OPERATOR-C Primary Care Provider Active Team Status: Inactive Member Role Status Dates Dr. Santosh Streeter DO Attending Provider Active Team Status: Inactive Member Role Status Dates Dr. Santosh Streeter DO Attending Provider Active Emiil Lozano AUTOMATIC PACKER OPERATOR, AUTOMATIC PACKER OPERATOR-C Primary Care Provider, Referri ng Provider Active Team Status: Active Member Role Status Dates Dr. Santosh Streeter DO Attending Provider, Other Prov ider Active Emili Lozano AUTOMATIC PACKER OPERATOR, AUTOMATIC PACKER OPERATOR-C Primary Care Provider, Referri ng Provider Active Team Status: Inactive Member Role Status Dates Emili Lozano NP, AUTOMATIC PACKER OPERATOR-C Primary Care Provider Active Dr. Santosh Streeter , Attending Provider, Referring Provider Active INFORMATION SOURCE (unrecogn ized section and content) DATE CREATED AUTHOR 05/27/2024 [facility] DATE CREATED AUTHOR 'S ORGANIZ ATION 09/29/2024 [facility] FOR RECORDS PERTAINING TO PATIENTS WHO ARE OR HAVE BEEN ENROLLED IN A CHEMICAL DEPENDENCY/SUBSTANCEABUSE PROGRAM, SOME INFORMATION MAY BE OMITTED. This clinical summary was aggregated from multiple sources. Caution should be exercised in using it in the provision of clinical care. This summary normalizes information from multiple sources, and as a consequence, information in this document may materially change the coding, format and clinical context of patient data. In addition, data may be omitted in some cases. CLINICAL DECISIONS SHOULD BE BASED ON THE PRIMARY CLINICAL RECORDS. [employer] provides no warranty or guarantee of the accuracy or completeness of information in this document.
[2025-05-24 15:08] LABS: H. PYLORI STOOL AG Negative (Negative)
== END | disposition home or self-care (01) ==
LOC: LABSPEC 11:06
PROVIDERS: PCP Nurse Practitioner Family; Referring Provider Internal Medicine Gastroenterology; Visit Provider Internal Medicine Gastroenterology
DX: R10.9 Unspecified abdominal pain (principal)
CPT/HCPCS: 87338